=== PATIENT | male | born 1995 | race Two or more races ===

== ENCOUNTER 2022-06-05 20:23 | Outpatient (REF) | payer OTHER, SELFPAY ==
[2022-06-05 21:03] LABS: COVID-19 Test Negative (Negative); IDNOW Serial# 55D5AD1C
== END 2022-06-05 20:24 | disposition home or self-care (01) ==
LOC: HO.LAB 20:23
PROVIDERS: Visit Provider Internal Medicine
DX: Z20.822 Contact with and (suspected) exposure to COVID-19 (principal)
CPT/HCPCS: 87635

== ENCOUNTER 2022-12-05 12:04 | Emergency (ER) | payer OTHER, SELFPAY ==
[2022-12-05 12:25] VITALS: BP 153/74; PULSE 72; RESP 20; TEMP 36.1; O2SAT 98; BMI 30.7
--- NOTE | 2022-12-05 12:28 | ED.GENADULT ---
HPI - General Adult General Chief complaint: Abdominal Pain Stated complaint: stomach pain, heat flash Time Seen by Provider: 12/05/22 12:40 History of Present Illness HPI narrative: patient complains of intermittent flank and abdominal pain over past month which is waxing and waning sometimes it is gone sometimes it wakes him up from sleep, he describes it as sometimes a burning pain sometimes a bloating pain, he has no dysuria now, may have had some in recent weeks but not sure, there is no nausea no vomiting no diarrhea there is no fever no chills, no discharge, no headache no stiff neck no sore throat no throat sores Related Data Previous Rx's Medication Instructions Recorded famotidine 20 mg tablet (Pepcid) 20 mg PO DAILY PRN stomach acid 12/05/22 pain #14 tabs Allergies Allergy/AdvReac Type Severity Reaction Status Date / Time No Known Allergies Allergy Verified 12/05/22 12:25 [facility] Past Medical History Source: nursing notes reviewed Social History Social History Advance Directives: No Physical Exam ED Vital Signs: Vital Signs - 24 hr 12/05/22 12:25 Temperature 97 F Pulse Rate 72 Respiratory Rate 20 Blood Pressure 153/74 H Pulse Oximetry 98 Oxygen Delivery Method Room Air BMI result Body Mass Index 30.7 general appearance is no distress Eyes anicteric no pallor The pharynx is clear with moist mucous membranes no redness swelling or exudate Neck is supple Chest clear to auscultation bilateral Heart no murmur Abdomen had mild epigastric tenderness, as well as some mild bilateral flank tenderness no rebound no guarding, no CVA tenderness Extremities range of motion x4 Skin no rash Course Course Course Narrative: This is an RME: Additional HPI, ROS, PE not included below will be deferred to primary provider. This is a [id number] presenting to the emergency department with complaints of waxing and waning abdominal/flank pain x 1 month. Intermittent burning with urination. ?dark stool. Vital signs stable. Unknown STI status. Plan: Labs, UA ordered Patient who has had intermittent but frequent episodes of flank and back pain head CT scan with no acute findings, there was a small left mid pole renal stone but no obstructive urolithiasis no hydronephrosis CBC was normal, chemistry was only remarkable for a 1.4 bilirubin which she is advised to get repeated that his doctor in coming weeks Urinalysis normal Well-appearing patient is discharged with diagnosis of abdominal pain uncertain etiology, repeat abdominal exam was at this point normal, he is tolerating p.o. and he is discharged Medical Decision Making Lab Data MDM Lab Attestation statement: I reviewed the patient's lab results. 12/05/22 12:45 12/05/22 12:45 Labs: Lab Results 12/05/22 12/05/22 12/05/22 Range/Units 12:45 12:45 14:26 WBC 5.1 (4.8-10.8) X10*3/uL RBC 5.12 (4.60-5.80) X10*6/uL Hgb 14.9 (14.0-18.0) g/dl Hct 43.1 (42.0-52.0) % MCV 84.2 (80.0-98.0) fL MCH 29.1 (27.0-33.0) pg MCHC 34.6 (31.0-36.0) g/dl RDW 11.9 (11.0-16.0) % Plt Count 171 (160-400) X10*3/uL MPV 11.7 (9.4-12.4) fL Immature Gran % (Auto) 0.4 (0.0-0.4) % Neut % (Auto) 53.2 (45-73) % Lymph % (Auto) 33.5 (20-40) % [place] % (Auto) 9.1 (2-11) % Eos % (Auto) 3.2 (0-4) % Baso % (Auto) 0.6 (0-2) % Lymph # (Auto) 1.7 (1.2-4.9) X10*3/uL Woodruff # (Auto) 0.5 (0.1-1.2) X10*3/uL Eos # (Auto) 0.2 (0.0-0.4) X10*3/uL Baso # (Auto) 0.0 (0.0-0.2) X10*3/uL Abs Immat Gran (auto) 0.02 (0.00-0.03) X10*3/uL Absolute Neuts (auto) 2.7 (2.0-8.3) x10*3/uL Absolute Nucleated RBC 0.000 (0.0-0.012) X10*3/uL Nucleated RBC % (auto) 0.0 (0.0-0.2) /100WBC Sodium 139 (135-145) mmol/L Potassium 4.2 (3.3-5.1) mmol/L Chloride 105 (96-108) mmol/L Carbon Dioxide 26 (22-29) mmol/L Anion Gap 12 (12-20) BUN 12 (9-16) mg/dL Creatinine 0.87 (0.5-1.4) mg/dL Estim Creat Clear Calc 142.0 Estimated GFR > 60 Random Glucose 108 (60-115) mg/dL Calcium 9.7 (8.4-10.2) mg/dL Total Bilirubin 1.4 H (0.0-1.0) mg/dL Direct Bilirubin 0.2 (0.0-0.5) mg/dL AST 24 (5-37) U/L ALT 28 (0-40) U/L Alkaline Phosphatase 81 (39-117) U/L Total Protein 7.2 (6.5-8.0) g/dL Albumin 4.1 (3.5-5.0) g/dL Lipase 29 (8-78) U/L Urine Color Yellow Urine Appearance Clear Urine pH 5.5 (5.0-9.0) Ur Specific [place] 1.015 (1.005-1.025) Urine Protein Negative (Neg-Trace) mg/dL Urine Glucose (UA) Negative (Negative) mg/dL Urine Ketones Negative (Negative) mg/dL Urine Blood Negative (Negative) Urine Nitrite Negative (Negative) Ur Leukocyte Esterase Small (1+) H (Negative) Urine RBC 0-2 (0-2) /HPF Urine WBC 0-5 (0-5) /HPF Ur Squamous Epith Cells 0-2 (0-2) /HPF Urine Bacteria None Seen (None Seen) Hyaline Casts 0-2 (0-2) /LPF Discharge Plan Discharge Clinical Impression: Abdominal pain Patient Disposition: Home, Self-Care Additional Instructions: our workup today did not find any worrisome abnormalities CT was done with no evidence of any mass or obstruction or active kidney stones Lab workup of blood did not show any abnormality except a mildly elevated bilirubin which shold simply be repeated in several weeks at her doctor's office to make sure it is returning to normal Urine test was normal We are trying an antacid to see if it is helpful but we are not sure what is causing the pain In some cases testosterone abnormalities can cause body aches or back pain, but I am not certain Follow with primary doctor Return any time for worsening abdominal pain fever vomiting any worse condition or any concerns Prescriptions: New famotidine [Pepcid] 20 mg tablet 20 mg PO DAILY PRN (Reason: stomach acid pain) Qty: 14 0RF Interventions: ED Discharge Assessment Last Done: 12/05/22 17:48 Discharge Date/Time: 12/05/22 17:49
--- NOTE | 2022-12-05 14:23 | PC.NURSE ---
18g Iv placed in right AC- labs obtained- awaiting CT scan
--- NOTE | 2022-12-05 16:09 | PC.NURSE ---
pt returned from CT scan, resting quietly awaiting results, call fabian within reach
== END 2022-12-05 17:49 | disposition home or self-care (01) ==
PROVIDERS: Emergency Provider Emergency Medicine Emergency Medical Services
DX: R10.9 Unspecified abdominal pain (principal); R30.0 Dysuria
CPT/HCPCS: 0353U; 36415; 74176; 80048; 80076; 81001; 83690; 85025; 87086; 99283; 99284